=== PATIENT | female | born 1955 | race Caucasian/White ===

== ENCOUNTER 2020-06-01 09:35 | Emergency (ER) | payer MEDICARE ==
[~2020-06-01] VITALS: Ht 167.6 cm; Wt 63.6 kg
[2020-06-01 10:05] VITALS: TEMP 96.6
[2020-06-01] MEDS ORDERED: NORCO 325 MG-51 TAB PO (11:51)
[2020-06-01] MEDS ORDERED: CRUTCHES MC (11:52)
[2020-06-01 12:06] VITALS: BP 135/87; PULSE 65
== END 2020-06-01 12:06 | disposition home or self-care (01) ==
LOC: COL.ER 09:35
DX: S82.851A Displaced trimalleolar fracture of right lower leg, initial encounter for closed fracture (principal); Z88.0 Allergy status to penicillin; X50.1XXA Overexertion from prolonged static or awkward postures, initial encounter